=== PATIENT | male | born 1975 | race Caucasian/White ===

== ENCOUNTER 2019-02-12 21:52 | Emergency (ER) | payer OTHER ==
[2019-02-12 22:00] VITALS: RESP 18; TEMP 98.1
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
[2019-02-12 23:32] VITALS: BP 134/96; PULSE 65
== END 2019-02-12 23:32 | disposition home or self-care (01) ==
LOC: EC 21:52
DX: M25.512 Pain in left shoulder (principal); F17.200 Nicotine dependence, unspecified, uncomplicated; Z88.0 Allergy status to penicillin; V49.40XA Driver injured in collision with unspecified motor vehicles in traffic accident, initial encounter; Y92.410 Unspecified street and highway as the place of occurrence of the external cause
CPT/HCPCS: 71046; 99284